=== PATIENT | male | born 1980 | race Caucasian/White ===

== ENCOUNTER 2022-06-05 09:15 | Emergency (ER) | payer BC ==
[2022-06-05] MEDS ORDERED: Ketorolac Tromethamine 30 MG/ML VIAL ONE (09:59)
[2022-06-05] MEDS ORDERED: Morphine 4 MG/ML VIAL ONE (09:59)
== END 2022-06-05 12:33 | disposition home or self-care (01) ==
LOC: CSHERS 09:15
DX: S82.301A Unspecified fracture of lower end of right tibia, initial encounter for closed fracture (principal); X50.1XXA Overexertion from prolonged static or awkward postures, initial encounter; Y93.52 Activity, horseback riding
CPT/HCPCS: 29515; 96374; 96375; J1885; J2270